=== PATIENT | female | born 1990 | race Asian ===

== ENCOUNTER 2019-04-14 16:05 | Outpatient (CLI) | payer BC ==
--- NOTE | 2019-04-14 16:41 | RAD ---
XR Lumbar Spine 2 Or 3 View History: Low back pain Comparison: None. Findings: No acute fracture or malalignment. No definite pars intra-articular is defect is appreciate d. No lumbosacral position vertebra. No listhesis. Paraspinal soft tissues are unremarkable. Impression: No acute osseous abnormality.
== END 2019-04-14 16:06 | disposition home or self-care (01) ==
LOC: SCSRAD 16:05
PROVIDERS: ATTEND Chiropractor
DX: M54.5 Low back pain (principal)
CPT/HCPCS: 72100